=== PATIENT | female | born 1950 | race American Indian/Alaskan Native ===

== ENCOUNTER 2020-01-23 05:50 | Emergency (ER) | payer SELFPAY ==
--- NOTE | 2020-01-23 07:35 | Emergency Department Report ---
ED Extremity Problem HPI - General Chief complaint: Extremity Injury, Lower Stated complaint: BILATERAL BURNING FEET Time Seen by Provider: 01/23/20 07:09 Source: patient Mode of arrival: Ambulatory Limitations: No Limitations - History of Present Illness Initial comments: Patient is a 69-year-old female presents emergency room complaints of bilateral feet burning, itching, skin sloughing that began 3 months ago. She has not seen a primary care physician. She denies any pus drainage, fever, vomiting, fall or injury. She denies any past medical history. She denies any allergies to medications. She states that she last saw a doctor approximately 6 to 7 months ago. - Related Data Previous Rx's Medication Instructions Recorded Last Taken Type Clotrimazole [Alevazol] 1 applicatio TP BID #1 oint...g. 01/23/20 Unknown Rx ED Review of Systems ROS: Stated complaint: BILATERAL BURNING FEET Other details as noted in HPI Comment: All other systems reviewed and negative ED Past Medical Hx - Past Medical History Previous Medical History?: No - Surgical History Past Surgical History?: No - Social History Smoking Status: Never Smoker Substance Use Type: None - Medications Home Medications: Home Medications Medication Instructions Recorded Confirmed Last Taken Type Clotrimazole [Alevazol] 1 applicatio TP BID #1 oint...g. 01/23/20 Unknown Rx ED Physical Exam - General Limitations: No Limitations General appearance: alert, in no apparent distress - Head Head exam: Present: atraumatic, normocephalic - Eye Eye exam: Present: normal appearance - ENT ENT exam: Present: mucous membranes moist - Extremities Exam Extremities exam: Present: other (multiple areas of dry skin, erythema, scaling present to the bilateral plantar feet and between the webs of the toes, no drainage, no fluctuance, no surrounding induration or erythema, no necrosis, no blistering, no ulcerations, FROM of the bilateral ankles, feet, toes, neurovascularly intact) - Neurological Exam Neurological exam: Present: alert, oriented X3 - Psychiatric Psychiatric exam: Present: normal affect, normal mood - Skin Skin exam: Present: warm, dry ED Course Vital Signs 01/23/20 01/23/20 06:14 07:48 Temperature 98.0 F Pulse Rate 86 79 Respiratory 18 Rate Blood Pressure 171/84 155/98 O2 Sat by Pulse 97 97 Oximetry ED Medical Decision Making - Lab Data Vital Signs 01/23/20 01/23/20 06:14 07:48 Temperature 98.0 F Pulse Rate 86 79 Respiratory 18 Rate Blood Pressure 171/84 155/98 O2 Sat by Pulse 97 97 Oximetry - Medical Decision Making Patient is a 69-year-old female presents emergency room complaints of bilateral feet burning, itching, skin sloughing that began 3 months ago. She has not seen a primary care physician. She denies any pus drainage, fever, vomiting, fall or injury. She denies any past medical history. She denies any allergies to medications. She states that she last saw a doctor approximately 6 to 7 months ago. initial vitals with elevated BP which improved upon repeat. on exam: multiple areas of dry skin, erythema, scaling present to the bilateral plantar feet and between the webs of the toes, no drainage, no fluctuance, no surrounding induration or erythema, no necrosis, no blistering, no ulcerations, FROM of the bilateral ankles, feet, toes, neurovascularly intact. Examination appears consistent with tinea pedis no signs of cellulitis, no signs of secondary bacterial infection. Patient given prescription for clotrimazole. P atient will be referred to primary care physician. advised pt please use medication as prescribed. Soak your feet in vinegar for 10 to 15 minutes once a day then immediately dry off your feet. Follow-up with your primary care doctor for reexamination. Please follow-up with a primary care doctor regarding the elevation in your blood pressure during today's visit. Increase your water intake. Eat a low-sodium (low salt) diet. Incorporate 30 minutes of aerobic exercise a day. Return to emergency room for any new or worsening symptoms. Critical care attestation.: If time is entered above; I have spent that time in minutes in the direct care of this critically ill patient, excluding procedure time. ED Disposition Clinical Impression: Elevated blood pressure reading Tinea pedis Qualifiers: Laterality: bilateral Qualified Code(s): B35.3 - Tinea pedis Disposition: DC-01 TO HOME OR SELFCARE Is pt being admited?: No Does the pt Need Aspirin: No Condition: Stable Instructions: Tinea Pedis (ED) Additional Instructions: Please use medication as prescribed. Soak your feet in vinegar for 10 to 15 minutes once a day then immediately dry off your feet. Follow-up with your primary care doctor for reexamination. Please follow-up with a primary care doctor regarding the elevation in your blood pressure during today's visit. Increase your water intake. Eat a low-sodium (low salt) diet. Incorporate 30 minutes of aerobic exercise a day. Return to emergency room for any new or worsening symptoms. Prescriptions: Clotrimazole [Alevazol] 1 applicatio TP BID #1 oint...g. Referrals: CHARLEE FONSECA MD [Staff Physician] - 2-3 Days [facility] [Provider Group] - 2-3 Days [facility] [Outside] - 2-3 Days Time of Disposition: 07:32 Print Language: FRISIAN
[2020-01-23 07:58] VITALS: BP 155/98
== END 2020-01-23 07:49 | disposition home or self-care (01) ==
LOC: ED 05:50
DX: R03.0 Elevated blood-pressure reading, without diagnosis of hypertension (principal); B35.3 Tinea pedis; Z79.899 Other long term (current) drug therapy
CPT/HCPCS: 99282